=== PATIENT | female | born 1980 | race Caucasian/White ===

== ENCOUNTER → 2019-11-13 | Outpatient (CLI) | payer BC ==
[~2019-11-13] MED LIST: AZASAN75 MG PO; MOTRIN 600600 MG/TAB PO; PENTASA500 MG PO; PERCOCET 325 MG1 TA2 PO; PRENATAL1 TA1 PO
== END ==
LOC: COL.LAB 09:27
PROVIDERS: Internal Medicine Gastroenterology
DX: K50.80 Crohn's disease of both small and large intestine without complications (principal)

== ENCOUNTER 2020-01-14 08:18 | Outpatient (CLI) | payer BC ==
[~2020-01-14] VITALS: Ht 167.6 cm; Wt 92.3 kg
[2020-01-14 10:30] VITALS: BP 103/67; PULSE 81; TEMP 98.4
[2020-01-14] MEDS ORDERED: PHARMASSURE ZIN50 MG PO (11:30)
[2020-01-14] MEDS ORDERED: ENTOCORT EC3 MG PO (11:30)
[2020-01-14 11:31] LABS: HEMATOCRIT 37.6 % (37.0-47.0); HEMOGLOBIN 12.4 g/dl (12.5-16.0); MEAN CELL VOLUME 90 fl (80.0-100.0); MEAN CORPUSCULAR HEMOGLOBIN 30 pg (27.0-31.0); MEAN CORPUSCULAR HGB CONC 33 g/dl (33.0-37.0); MEAN PLATELET VOLUME 8.6 fl (7.4-10.4); PLATELET COUNT 553 K/mm3 (130-400); RED BLOOD COUNT 4.19 M/mm3 (4.10-5.30); REDCELL DISTRIBUTION WIDTH-CV 15.5 % (11.5-14.5)
[2020-01-14] MEDS ORDERED: DUO-KAPS1 CAP PO (11:31)
[2020-01-14 11:41] LABS: ALBUMIN 3.9 gm/dL (3.5-5.0); BILIRUBIN,TOTAL 0.5 mg/dL (0.0-1.0); TOTAL PROTEIN 7.9 gm/dL (6.4-8.2)
[2020-01-14 12:04] LABS: BILIRUBIN UNCONJUGATED 0.3 mg/dL (0.0-1.1); BILIRUBIN,DIRECT 0.1 mg/dL (0.0-0.4)
== END 2020-01-14 11:32 | disposition home or self-care (01) ==
LOC: EUO 08:18
PROVIDERS: Internal Medicine Gastroenterology
DX: K50.80 Crohn's disease of both small and large intestine without complications (principal)

== ENCOUNTER → 2020-08-24 | Outpatient (CLI) | payer OTHER ==
[~2020-08-24] MED LIST changes: +DUO-KAPS1 CAP PO; +ENTOCORT EC3 MG PO; +PHARMASSURE ZIN50 MG PO
== END ==
LOC: COL.LAB 08:17
DX: K50.10 Crohn's disease of large intestine without complications (principal)

== ENCOUNTER 2020-09-16 15:32 | Outpatient (CLI) | payer OTHER ==
[~2020-09-16] VITALS: Ht 167.6 cm; Wt 95.0 kg
[2020-09-16 14:19] LABS: HEMATOCRIT 40.6 % (37.0-47.0); HEMOGLOBIN 13.3 g/dl (12.5-16.0); MEAN CELL VOLUME 88 fl (80.0-100.0); MEAN CORPUSCULAR HEMOGLOBIN 29 pg (27.0-31.0); MEAN CORPUSCULAR HGB CONC 33 g/dl (33.0-37.0); MEAN PLATELET VOLUME 9.5 fl (7.4-10.4); PLATELET COUNT 516 K/mm3 (130-400); RED BLOOD COUNT 4.64 M/mm3 (4.10-5.30); REDCELL DISTRIBUTION WIDTH-CV 16.3 % (11.5-14.5)
[2020-09-16 14:27] LABS: ALBUMIN 4.2 gm/dL (3.5-5.0); BILIRUBIN UNCONJUGATED 0.2 mg/dL (0.0-1.1); BILIRUBIN,DIRECT 0.1 mg/dL (0.0-0.4); BILIRUBIN,TOTAL 0.4 mg/dL (0.0-1.0); TOTAL PROTEIN 8.7 gm/dL (6.4-8.2)
[2020-09-16 15:15] VITALS: BP 114/74; PULSE 76; TEMP 98.4
== END 2020-09-16 16:10 | disposition home or self-care (01) ==
LOC: EUO 15:32
PROVIDERS: Internal Medicine Gastroenterology
DX: K50.10 Crohn's disease of large intestine without complications (principal); Z79.899 Other long term (current) drug therapy
CPT/HCPCS: J7050

== ENCOUNTER 2020-09-30 13:53 | Outpatient (CLI) | payer OTHER ==
[~2020-09-30] VITALS: Ht 167.6 cm; Wt 93.8 kg
[2020-09-30 14:54] LABS: HEMATOCRIT 39.1 % (37.0-47.0); HEMOGLOBIN 12.9 g/dl (12.5-16.0); MEAN CELL VOLUME 86 fl (80.0-100.0); MEAN CORPUSCULAR HEMOGLOBIN 29 pg (27.0-31.0); MEAN CORPUSCULAR HGB CONC 33 g/dl (33.0-37.0); MEAN PLATELET VOLUME 9.6 fl (7.4-10.4); PLATELET COUNT 485 K/mm3 (130-400); RED BLOOD COUNT 4.53 M/mm3 (4.10-5.30); REDCELL DISTRIBUTION WIDTH-CV 16.2 % (11.5-14.5)
[2020-09-30 15:05] LABS: BILIRUBIN UNCONJUGATED 0.3 mg/dL (0.0-1.1); BILIRUBIN,TOTAL 0.2 mg/dL (0.0-1.0); TOTAL PROTEIN 8.3 gm/dL (6.4-8.2)
[2020-09-30 16:09] VITALS: BP 122/84; PULSE 105; TEMP 97.9
== END 2020-09-30 16:57 | disposition home or self-care (01) ==
LOC: EUO 13:53
PROVIDERS: Internal Medicine Gastroenterology
DX: K50.10 Crohn's disease of large intestine without complications (principal); Z79.899 Other long term (current) drug therapy
CPT/HCPCS: J3380; J7050

== ENCOUNTER → 2020-10-21 | Outpatient (CLI) | payer OTHER | LOC: MC.RAD 11:21 | DX: Z12.31 Encounter for screening mammogram for malignant neoplasm of breast (principal) ==

== ENCOUNTER 2020-10-28 14:59 | Outpatient (CLI) | payer OTHER ==
[~2020-10-28] VITALS: Ht 167.6 cm; Wt 96.4 kg
[2020-10-28 14:15] VITALS: BP 110/69; PULSE 76; TEMP 98.4
== END 2020-10-28 19:31 | disposition home or self-care (01) ==
LOC: EUO 14:59
DX: K50.10 Crohn's disease of large intestine without complications (principal); Z79.899 Other long term (current) drug therapy
CPT/HCPCS: J3380; J7050

== ENCOUNTER 2020-12-23 15:11 | Outpatient (CLI) | payer OTHER ==
[~2020-12-23] VITALS: Ht 167.6 cm; Wt 96.2 kg
[2020-12-23 14:30] VITALS: BP 157/90; PULSE 92; TEMP 98.2
== END 2020-12-23 16:44 ==
LOC: EUO 15:11
DX: K50.10 Crohn's disease of large intestine without complications (principal); Z79.899 Other long term (current) drug therapy
CPT/HCPCS: J3380; J7050

== ENCOUNTER 2021-02-17 14:01 | Outpatient (CLI) | payer OTHER ==
[~2021-02-17] VITALS: Ht 167.6 cm; Wt 97.2 kg
[2021-02-17 14:36] VITALS: BP 113/67; PULSE 76; TEMP 98.2
== END 2021-02-17 15:37 ==
LOC: EUO 14:01
DX: K50.90 Crohn's disease, unspecified, without complications (principal)
CPT/HCPCS: J3380; J7050

== ENCOUNTER 2021-04-13 10:58 | Outpatient (CLI) | payer OTHER ==
[~2021-04-13] VITALS: Ht 167.6 cm; Wt 98.1 kg
[2021-04-13 12:33] VITALS: BP 107/70; PULSE 62; TEMP 99
== END 2021-04-13 12:35 | disposition home or self-care (01) ==
LOC: EUO 10:58
DX: Z79.899 Other long term (current) drug therapy (principal)
CPT/HCPCS: J3380; J7050

== ENCOUNTER 2021-06-09 10:50 | Outpatient (CLI) | payer OTHER ==
[~2021-06-09] VITALS: Ht 167.6 cm; Wt 98.0 kg
[2021-06-09 12:15] VITALS: BP 111/79; PULSE 81; TEMP 98
== END 2021-06-09 13:30 | disposition home or self-care (01) ==
LOC: EUO 10:50
DX: K50.10 Crohn's disease of large intestine without complications (principal)
CPT/HCPCS: J3380; J7050

== ENCOUNTER 2021-08-04 10:48 | Outpatient (CLI) | payer OTHER ==
[~2021-08-04] VITALS: Ht 167.6 cm; Wt 97.7 kg
[2021-08-04 11:58] VITALS: BP 99/70; PULSE 69; TEMP 98
[2021-08-04] MEDS ORDERED: MULTI VITAMINS1 TAB PO (12:08)
== END 2021-08-04 12:31 | disposition home or self-care (01) ==
LOC: EUO 10:48
DX: K50.10 Crohn's disease of large intestine without complications (principal)
CPT/HCPCS: J3380; J7050

== ENCOUNTER 2021-11-24 11:02 | Outpatient (CLI) | payer OTHER ==
[~2021-11-24] VITALS: Ht 167.6 cm; Wt 97.2 kg
[~2021-11-24 11:02] MED LIST changes: +ENTYVIO IV; +MULTI VITAMINS1 TAB PO
[2021-11-24 11:25] VITALS: BP 119/83; PULSE 93; TEMP 97.7
== END 2021-11-24 13:21 | disposition home or self-care (01) ==
LOC: EUO 11:02
DX: K50.10 Crohn's disease of large intestine without complications (principal)
CPT/HCPCS: J3380; J7050

== ENCOUNTER → 2023-02-01 | Outpatient (CLI) | payer OTHER | LOC: CANSCHCLI → COL.RAD 07:14 | DX: K83.8 Other specified diseases of biliary tract (principal); R93.89 Abnormal findings on diagnostic imaging of other specified body structures ==

== ENCOUNTER → 2023-07-12 | Outpatient (CLI) | payer OTHER | LOC: MC.RAD 09:10 | DX: Z12.31 Encounter for screening mammogram for malignant neoplasm of breast (principal) ==